=== PATIENT | male | born 1970 | race Hispanic/Latino ===

== ENCOUNTER 2018-05-08 21:25 | Emergency (ER) | payer OTHER ==
[2018-05-08] MEDS ORDERED: Morphine 10 MG/ML VIAL ONE (21:43)
--- NOTE | 2018-05-08 23:44 | ULT ---
RIGHT LOWER EXTREMITY VENOUS DOPPLER WITH SPECTRAL ANALYSIS AND COLOR FLOW EVALUATION 05/08/18 HISTORY: Right leg pain and swelling and redness. FINDINGS: Del Toro scale, color flow, doppler evaluation, and spectral analysis of the right lower extremity venous structures is performed with 2D imaging. The right lower extremity common femoral, superficial femor al, popliteal, posterior tibial, and most proximal greater saphenous and profunda femoral veins are i godfrey. There is normal lumen compressibility, flow and augmentation in the visualized deep venous structures right lower extremity. IMPRESSION: No evidence of a DVT involving the visualized deep venous structures right lower extremity. POS: [facility]
== END 2018-05-09 00:26 | disposition home or self-care (01) ==
LOC: ERS 21:25
DX: M79.604 Pain in right leg (principal); B02.9 Zoster without complications; M10.9 Gout, unspecified; I10 Essential (primary) hypertension; Z79.51 Long term (current) use of inhaled steroids; Z79.899 Other long term (current) drug therapy
CPT/HCPCS: 96372; J2270